=== PATIENT | male | born 1975 | race Caucasian/White ===

== ENCOUNTER 2019-06-08 09:24 | Outpatient (CLI) | payer OTHER, SELFPAY | END 2019-06-08 09:25 | disposition home or self-care (01) | LOC: RADWPI 14:33 | PROVIDERS: Referring Provider Family Medicine; Visit Provider Specialist | DX: M25.562 Pain in left knee (principal) | CPT/HCPCS: 73560; 73565 ==

== ENCOUNTER 2019-07-08 13:12 | Outpatient (CLI) | payer OTHER, SELFPAY ==
--- NOTE | 2019-07-08 13:20 | MR_ITS ---
WS: [id number] MRI left knee arthrogram, pre and postcontrast. History: Knee pain. Prior ACL repair. Pre arthrogram imaging of the LEFT knee is performed. Additional imaging performed after ProHance inj ection. COMPARISON: None. Pre arthrogram: An intact ACL is not identified. There is a gap in the distal ACL surgically repaired ligament. The proximal ligament is very thin caliber. Slight buckling of the PCL. Lobulated cystic soft tissue mass along the medial knee, centered at the level of the tibial plateau. Mass is causing displacement of the MCL from the knee joint. This lobulated cyst measures 2.9 cm in length. Closely associated with the meniscus and the MCL. Blunting and fraying along the surfaces of the posterior medial meniscus. Normal meniscal body is not identified. There is marked abnormal signa l in the posterior horn of the lateral meniscus extending into the meniscal root. No joint effusion. Patella is normally positioned. There is a very tiny defect in the medial patellar facet cartilage. Moderate narrowing of the medial and mild narrowing of the lateral compartments. Co mplete loss of cartilage in the medial compartment with a few subchondral cystic changes and cortical irregularity and osteophytes. Lesser fissuring involving the cartilage in the lateral knee. There ar e osteophytes extending from the medial and lateral femoral condyle and tibial plateau. Osteophytes a lso extend toward the intercondylar notch. Subchondral cystic changes along the surface of the medial femoral condyle. Post arthrogram: Good filling of the knee joint with contrast. There is a gap in the distal ACL with some minimal cont rast extending into the gap. There is also contrast extending into the cystic mass suggesting it does connect with the joint space. Favor this is probably a lobulated meniscal cyst. Post contrast images confirm numerous cartilaginous defects and tears especially involving the medial femoral condyle zaira ghtbearing surface of the tibial plateau. No full-thickness defects fill with contrast of the lateral knee cartilage. There is contrast extending into the meniscal root tear of the posterior lateral meniscus. There is a smaller tear involving the free edge posterior horn medial meniscus. MR/MR knee LT wo/w con [id number] IMPRESSION: 1. Re-tear involving the surgically repaired ACL. 2. Lobulated cystic mass along the medial knee joint line extends over length o f 2.8 cm. Does partially fill with contrast therefore this is most consistent w ith a meniscal cyst. 3. Complex meniscal tear involving the root posterior horn lateral meniscus and a smaller tear involving the free edge and body posterior horn medial meniscus . 4. Significant loss of cartilage involving the medial compartment with joint sp allen narrowing and osteophytes. 5. Aguilar's cyst fills with contrast on the post arthrogram imaging.
--- NOTE | 2019-07-08 13:21 | IR_ITS ---
WS: [id number] LEFT KNEE ARTHROGRAM (FLUOROSCOPY) LEFT knee arthrogram was performed in fluoroscopy prior to MRI evaluation. HISTORY: PAIN IN KNEE COMPARISON: None. Fluoroscopy time: 0.6 minutes. Procedure, risks and complications were explained to the patient. Complications include but not limit ed to bleeding, infection and contrast reaction. Current medications are reviewed. Skin is cleansed with ChloraPrep. Skin is anesthetized with 1% buffered lidocaine. 20-gauge needle is inserted into the LEFT patellofemoral joint space. Approximately 30 cc of ProHance mixture injected without complication. Patient will proceed to MRI evaluation immediately. No complications were encountered. Patient is instructed to watch for post procedure infection or ble eding. Patient is also instructed to contact the radiology department with any concerns. Uncomplicated injection into the knee joint. IR/[place] [id number] IMPRESSION: Uncomplicated LEFT knee joint injection prior to MRI arthrogram.
[2019-07-08] MEDS: iohexol 240 mg/mL 50 mL Btl INTRA-ARTI (14:32)
== END 2019-07-08 13:13 | disposition home or self-care (01) ==
LOC: RADWPI 13:15
PROVIDERS: PCP Family Medicine; Visit Provider Specialist
DX: M71.22 Synovial cyst of popliteal space [Baker], left knee (principal); S83.272A Complex tear of lateral meniscus, current injury, left knee, initial encounter; X58.XXXA Exposure to other specified factors, initial encounter; M25.562 Pain in left knee
CPT/HCPCS: 27369; 73723; 77002; A9579; Q9966

== ENCOUNTER 2023-05-08 13:30 | Outpatient (CLI) | payer OTHER, SELFPAY | END 2023-05-08 13:31 | disposition home or self-care (01) | LOC: SLEEP 05-09 10:11 | PROVIDERS: PCP Family Medicine; Visit Provider Family Medicine | DX: G47.33 Obstructive sleep apnea (adult) (pediatric) (principal); I10 Essential (primary) hypertension | CPT/HCPCS: G0399 ==

== ENCOUNTER → 2023-12-20 10:20 | Outpatient (BNVA) | payer OTHER, SELFPAY | PROVIDERS: PCP Family Medicine; Visit Provider Family Medicine | DX: E03.9 Hypothyroidism, unspecified (principal); I10 Essential (primary) hypertension; G47.33 Obstructive sleep apnea (adult) (pediatric); M76.60 Achilles tendinitis, unspecified leg | CPT/HCPCS: 80053; 80061; 84443 ==

== ENCOUNTER → 2024-09-11 09:14 | Outpatient (BNVA) | payer OTHER, SELFPAY | PROVIDERS: PCP Family Medicine; Visit Provider Family Medicine | DX: C73 Malignant neoplasm of thyroid gland (principal); I10 Essential (primary) hypertension; G47.33 Obstructive sleep apnea (adult) (pediatric); E03.9 Hypothyroidism, unspecified | CPT/HCPCS: 80053; 82310; 83970; 84432; 84436; 84443; 84481; 85025; 86800 ==